=== PATIENT | female | born 1950 ===

== ENCOUNTER 2021-11-07 08:45 | Inpatient (IN) | payer OTHER ==
[~2021-11-07] VITALS: Ht 160 cm; Wt 73.5 kg
[2021-11-07] MEDS ORDERED: TOPROL XL25 M1 PO (10:22)
[2021-11-07] MEDS ORDERED: JARDIANCE10 MG PO (10:22)
[2021-11-07] MEDS ORDERED: ATACAND32 MG PO (10:22)
[2021-11-07] MEDS ORDERED: JANUMET XR 50-1 EAC1 PO (10:22)
[2021-11-07] MEDS ORDERED: LIPITOR20 MG PO (10:23)
[2021-11-07] MEDS ORDERED: SYNTHROID50 MCG PO (10:23)
[2021-11-07] MEDS ORDERED: GABAPENTIN300 M2 PO (10:23)
[2021-11-07] MEDS ORDERED: NORVASC5 MG PO (10:23)
[2021-11-07] MEDS ORDERED: HUMALOG100 UNIT/2 (10:24)
[2021-11-09] MEDS ORDERED: COLACE100 MG PO (07:41)
[2021-11-09] MEDS ORDERED: ACETAMINOPHEN-1 EAC2 PO (07:42)
[2021-11-09] MEDS ORDERED: MEDROLPACK PO (07:42)
[2021-11-09] MEDS ORDERED: ZOFRAN8 MG PO (07:42)
== END 2021-11-10 12:42 | disposition home or self-care (01) | DRG 472 ==
LOC: PED 11-09 04:50 → O/R 11-09 04:50 → SURH 11-09 07:00 → PED 11-09 10:58
PROVIDERS: ADMIT Orthopaedic Surgery Orthopaedic Surgery of the Spine; ATTEND Orthopaedic Surgery Orthopaedic Surgery of the Spine
PROC: 0RG20A0 Fusion of 2 or more Cervical Vertebral Joints with Interbody Fusion Device, Anterior Approach, Anterior Column, Open Approach (ICD-10-PCS; 2021-11-09)
PROC: 0RT30ZZ Resection of Cervical Vertebral Disc, Open Approach (ICD-10-PCS; principal; 2021-11-09 07:00)
DX: M50.321 Other cervical disc degeneration at C4-C5 level (principal); M50.021 Cervical disc disorder at C4-C5 level with myelopathy; M48.02 Spinal stenosis, cervical region; E11.9 Type 2 diabetes mellitus without complications; E03.8 Other specified hypothyroidism; I10 Essential (primary) hypertension